=== PATIENT | male | born 1955 | race Caucasian/White ===

== ENCOUNTER → 2020-07-06 | Outpatient (CLI) | payer OTHER ==
[2020-07-06 13:01] LABS: CALCIUM 8.6 mg/dL (8.5-10.1); CHLORIDE 110 mmol/L (98-107)
[2020-07-06 13:07] LABS: ALANINE AMINOTRANSFERASE 33 U/L (12-78); ALBUMIN 3.9 g/dL (3.4-5.0); ALKALINE PHOSPHATASE 83 U/L (45-117); ANION GAP 4 mmol/L (5-15); BILIRUBIN,TOTAL 0.7 mg/dL (0.2-1.0); CHOL/HDL RATIO 2.2; CHOLESTEROL, TOTAL 164 mg/dL (140-239); CREATININE 0.89 mg/dL (0.7-1.3); HDL CHOL % 45 % (26-37); HDL CHOLESTEROL (DIRECT) 73 mg/dL (40-60); LDL CHOLESTEROL,CALCULATED 79 mg/dL (54-169); LDL/HDL RATIO 1.1 (0.5-3.0); TOTAL PROTEIN 7.3 g/dL (6.4-8.2); TRIGLYCERIDES 58 mg/dL (50-200); VLDL CHOLESTEROL 12 mg/dL (0-25)
== END | disposition home or self-care (01) ==
LOC: CFH 10:50
PROVIDERS: ATTEND Nurse Practitioner Family
DX: M47.816 Spondylosis without myelopathy or radiculopathy, lumbar region (principal); I10 Essential (primary) hypertension; M54.42 Lumbago with sciatica, left side; E78.49 Other hyperlipidemia
CPT/HCPCS: 36415; 72110; 73523; 80053; 80061

== ENCOUNTER 2020-07-21 08:47 | Emergency (ER) | payer MEDICARE, OTHER ==
[~2020-07-21] VITALS: Ht 172.7 cm; Wt 82.0 kg
--- NOTE | 2020-07-21 09:07 | NUR ---
PATIENT REPORTS THAT HE WENT GOLFING ON AND HE REPORTS THAT HIS BALACE WAS OFF THAT DAY THEN ATE AT HOME AND STARTED HAVING N/V/D THE NEXT MORNING. "I THINK I HAVE FOOD POISONING". REPORTS 5 EPISODES OF DIARRHEA AND 2 EPISODES OF N/C IN THE PAST 24 H. PATIENT IN BED IN GOWN WITH CONT ALPINE GUIDE, SPO2, BP Q 30 MIN, SIDE RAILS UP X2, CALL LIGHT IN REACH. PT REPORTS NO PAIN OR NAUSEA AT THIS TIME. EKG DONE.
[2020-07-21] MEDS ORDERED: FAMOTIDINE 20 MG/2 ML ONE (09:15)
[2020-07-21] MEDS ORDERED: ONDANSETRON 2MG/ML, 2ML ONE (09:15)
[2020-07-21] MEDS ORDERED: ONDANSETRON 2MG/ML, 2ML IVPush ONE (09:30)
[2020-07-21] MEDS ORDERED: SODIUM CHLORIDE 0.9% 1,000ML IVBOLUS ONE (09:30)
[2020-07-21] MEDS ORDERED: FAMOTIDINE 20 MG/2 ML IV ONE (09:30)
[2020-07-21 09:34] LABS: BASOPHILS # (AUTO) 0.04 x10^3/uL (0-0.1); BASOPHILS % (AUTO) 0 % (0-1); EOSINOPHILS # (AUTO) 0.15 x10^3/uL (0-0.4); EOSINOPHILS % (AUTO) 2 % (1-7); LYMPHOCYTES # (AUTO) 1.31 x10^3/uL (1-3.4); LYMPHOCYTES % (AUTO) 13 % (22-44); MD NO; MEAN CORPUSCULAR HEMOGLOBIN 30.4 pg (27.5-34.5); MEAN CORPUSCULAR HGB CONC 33.1 g/dL (33.2-36.2); MEAN CORPUSCULAR VOLUME 91.8 fL (81-97); MEAN PLATELET VOLUME 8.1 fL (7.4-10.4); MONOCYTES # (AUTO) 0.48 x10^3/uL (0.2-0.8); MONOCYTES % (AUTO) 5 % (2-9); NEUTROPHILS # (AUTO) 7.98 x10^3/uL (1.8-6.8); NEUTROPHILS % (AUTO) 80 % (42-75); PLATELET COUNT 278 x10^3/uL (130-400); RED BLOOD COUNT 5.59 x10^6/uL (4.38-5.82); RED CELL DISTRIBUTION WIDTH 13.6 % (9.4-14.8)
--- NOTE | 2020-07-21 09:39 | NUR ---
BLOOD WALKED TO LAB
[2020-07-21 09:43] LABS: ALANINE AMINOTRANSFERASE 30 U/L (12-78); ALBUMIN 4.3 g/dL (3.4-5.0); ANION GAP 9 mmol/L (5-15); CALCIUM 9.1 mg/dL (8.5-10.1); CHLORIDE 109 mmol/L (98-107); CREATININE 0.95 mg/dL (0.7-1.3)
[2020-07-21 09:45] LABS: ALKALINE PHOSPHATASE 94 U/L (45-117); BILIRUBIN,TOTAL 0.9 mg/dL (0.2-1.0); TOTAL PROTEIN 7.7 g/dL (6.4-8.2)
--- NOTE | 2020-07-21 10:08 | NUR ---
RECEIVED REPORT FROM CARLOS JUNIOR. CHART UP FOR MD RECHECK.
[2020-07-21 10:46] VITALS: BP 127/79
== END 2020-07-21 11:05 | disposition home or self-care (01) ==
LOC: ED 10:38
DX: R11.2 Nausea with vomiting, unspecified (principal); R19.7 Diarrhea, unspecified; I10 Essential (primary) hypertension; R10.9 Unspecified abdominal pain; E78.00 Pure hypercholesterolemia, unspecified
CPT/HCPCS: 36415; 80053; 85025; 93005; 96361; 96374; 96375; 99284; J2405; J3490; J7030; 87635